=== PATIENT | female | born 2000 | race Caucasian/White ===

== ENCOUNTER 2021-01-09 13:17 | Emergency (ER) | payer MEDICAID ==
[~2021-01-09] VITALS: Ht 162.6 cm; Wt 59.9 kg
--- NOTE | 2021-01-09 13:22 | NUR ---
Pt w/c assisted to bed 12.
[2021-01-09 13:24] VITALS: BP 118/68
--- NOTE | 2021-01-09 13:33 | NUR ---
20/F presents to ED with c/o left knee pain s/p fall yesterday. Pt states she had a mechanical trip and fall yesterday and landed onto concrete. Pt states she cannot bend her left knee. Mild swelling noted. c/o 6/10 pain. CMS intact distally.
[2021-01-09] MEDS ORDERED: ACETAMINOPHEN 325 MG TAB PO ONE (13:40)
[2021-01-09] MEDS ORDERED: IBUPROFEN 600 MG TAB PO ONE (13:40)
--- NOTE | 2021-01-09 13:51 | NUR ---
phone technician at pt bedside.
--- NOTE | 2021-01-09 14:06 | NUR ---
EMT at bedside for crutches and ice pack application.
--- NOTE | 2021-01-09 14:08 | NUR ---
PT GIVEN CRUTCHES, CRUTCHES ADJUSTED TO PT PROPER HIEGHT AND SIZE. PT STATES THAT THEY ALREADY KNOW HOW TO USE CRUTCHES, PT DEMONSTRATED PROPER USE OF CRUTCHES. PT STATES THAT THEY FEEL COMFORTABLE USING CRUTCHES. KAREY VAZQUEZ NOTIFIED.
--- NOTE | 2021-01-09 14:19 | NUR ---
PT PLACED IN LEFT KNEE IMMOBOLIZER
[2021-01-09] MEDS ORDERED: ACET-9525 PO (14:27)
[2021-01-09] MEDS ORDERED: IBUP-2213 PO (14:27)
[2021-01-09 14:39] VITALS: BP 118/68
--- NOTE | 2021-01-09 14:39 | NUR ---
Patient discharged with v/s stable. Written and verbal after care instructions given and explained. Patient alert, oriented and verbalized understanding of instructions. Ambulatory with steady gait. All questions addressed prior to discharge. ID band removed. Patient advised to follow up with PMD. Rx of Banco 5mg-325mg PO TID PRN pain X 2 days, and ibuprofen 600mg TID PRN pain X 10 days given. Patient educated on indication of medication including possible reaction and side effects. Opportunity to ask questions provided and answered.
== END 2021-01-09 14:39 | disposition home or self-care (01) ==
LOC: MED 13:17
DX: S86.912A Strain of unspecified muscle(s) and tendon(s) at lower leg level, left leg, initial encounter (principal); Z79.899 Other long term (current) drug therapy; W18.39XA Other fall on same level, initial encounter; Y93.89 Activity, other specified; Y92.89 Other specified places as the place of occurrence of the external cause; Y99.8 Other external cause status
CPT/HCPCS: 29505; 73564; 99283